=== PATIENT | female | born 1995 | race Caucasian/White ===

== ENCOUNTER 2019-02-01 13:11 | Emergency (ER) | payer BC ==
[~2019-02-01] VITALS: Ht 162.6 cm; Wt 63.5 kg
[2019-02-01] MEDS ORDERED: CONCERTA18 MG PO (13:22)
[2019-02-01] MEDS ORDERED: PRISTIQ ER50 MG PO (13:22)
[2019-02-01] MEDS ORDERED: BENADRYL25 MG ORAL (13:22)
[2019-02-01] MEDS ORDERED: DOXEPIN HCL25 MG ORAL (13:22)
[2019-02-01] MEDS ORDERED: LORazepam Inj 2mg/ml 1ml IM ONE (13:45)
--- NOTE | 2019-02-01 14:06 | NUR ---
ED Nurse Note:urine sent to labs
--- NOTE | 2019-02-01 14:24 | Emergency Room Report ---
History of Present Illness General Chief Complaint: Behavioral Complaint Source: Medical Record Present Illness HPI 23-year-old female with history of ADHD currently on amphetamine and anxiety brought in by boyfriend as she has been experiencing extreme anxiety for the past day. Patient is under the care of her psychiatrist Dr. Glez and reports that starting yesterday she started getting her dose of amphetamine and a half as it was recommended by primary care. Patient also has not taken clonazepam or anything for anxiety for years. Patient spoke to her psychiatrist prior to coming here and was told to come to the emergency room for anxiety control. Patient denies any SI, HI, changes of sleep and appetite. Denies visual and auditory hallucinations. Denies chest pain, short of breath, palpitation, drug use, tobacco smoke. Patient agrees to be treated with Ativan here however follow with primary care and psychiatrist tomorrow for further management Allergies: Coded Allergies: SULFAMETHOXAZOLE (Verified Allergy, Unknown, 02/01/19) TRIMETHOPRIM (Verified Allergy, Unknown, 02/01/19) Patient History Past Medical History: see triage record Past Surgical History: unable to obtain Pertinent Family History: none Last Menstrual Period: 01/25/19 Now: No Immunizations: UTD Reviewed Nursing Documentation: PMH: Agreed; PSxH: Agreed Nursing Documentation-PMH Past Medical History: No History, Except For Review of Systems All Other Systems: negative except mentioned in HPI Physical Exam Vital Signs Date Time Temp Pulse Resp B/P (MAP) Pulse Ox O2 Delivery O2 Flow Rate FiO2 02/01/19 13:16 98.4 105 18 120/81 (94) 99 Room Air Sp02 EP Interpretation: reviewed, normal General Appearance: no apparent distress, alert, GCS 15, non-toxic Head: normocephalic, atraumatic Eyes: bilateral eye normal inspection, bilateral eye PERRL ENT: hearing grossly normal, normal pharynx, no angioedema, normal voice Neck: full range of motion, supple/symm/no masses Respiratory: chest non-tender, lungs clear, normal breath sounds, no wheezing, speaking full sentences Cardiovascular #1: regular rate, rhythm, no edema, no murmur, normal capillary refill Cardiovascular #2: 2+ radial (R), 2+ radial (L) Gastrointestinal: normal bowel sounds, non tender, soft, non-distended, no guarding, no rebound Genitourinary: normal inspection, no CVA tenderness Musculoskeletal: back normal, gait/station normal, normal range of motion, non- tender, no calf tenderness Neurologic: alert, oriented x3, responsive, motor strength/tone normal, sensory intact, speech normal Psychiatric: judgement/insight normal, memory normal, no suicidal/homicidal ideation, no delusions, anxious Skin: no rash Lymphatic: normal inspection, no adenopathy Medical Decision Making PA Attestation All my diagnosis and treatment plans were reviewed ad discussed with my supervising physician Dr. Colbert Diagnostic Impression: Primary Impression: Anxiety attack Additional Impression: Tetrahydrocannabinol (THC) use disorder, mild, abuse ER Course 23-year-old female with history of ADHD currently on amphetamine and anxiety brought in by boyfriend as she has been experiencing extreme anxiety for the past day. Patient is under the care of her psychiatrist Dr. Glez and reports that starting yesterday she started getting her dose of amphetamine and a half as it was recommended by primary care. Patient also has not taken clonazepam or anything for anxiety for years. Patient spoke to her psychiatrist prior to coming here and was told to come to the emergency room for anxiety control. Patient denies any SI, HI, changes of sleep and appetite. Denies visual and auditory hallucinations. Denies chest pain, short of breath, palpitation, drug use, tobacco smoke. Patient agrees to be treated with Ativan here however follow with primary care and psychiatrist tomorrow for further management Ddx considered but are not limited to: generalized anxiety disorder, panic attack, depression with psycotic featurs, bipolar disorder, drug overdose Vital signs: are WNL, pt. is afebrile H&PE are most consistent with: Anxiety attack, THC use ORDERS: Urine test, tox screen, ED INTERVENTIONS: Ativan DISCHARGE: At this time pt. is stable for d/c to home. Will provide printed patient care instructions, and any necessary prescriptions. Care plan and follow up instructions have been discussed with the patient prior to discharge. Patient to follow-up with her primary care provider and psychiatrist also gave her a list of mental health hospitals to go to patient stable at time of discharge denies any suicidal or homicidal ideations. Last Vital Signs Date Time Temp Pulse Resp B/P (MAP) Pulse Ox O2 Delivery O2 Flow Rate FiO2 02/01/19 13:16 98.4 105 18 120/81 (94) 99 Room Air Disposition: HOME, SELF-CARE Condition: Stable Referrals: NON PHYSICIAN (PCP) Patient Instructions: Generalized Anxiety Disorder Additional Instructions: Follow-up with your psychiatrist regarding your ADHD management and anxiety. I will also give you a list of mental health clinics that he can voluntarily contact and go into. Mick Gay Feb 01, 2019 14:24
--- NOTE | 2019-02-01 15:00 | NUR ---
ED Nurse Note:pt. was given d/c instructions with psych referrals, VSS, pt. is A/Ox4, she wants to wait for her mother to arrive
[2019-02-01 15:26] VITALS: BP 120/81
--- NOTE | 2019-02-01 16:00 | NUR ---
ER DISCHARGE NOTE: Patient is cleared to be discharged per ERMD, pt is aox4, on room air, with stable vital signs. pt was given dc instructions, pt was able to verbalize understanding, pt is able to ambulate with steady gait. pt took all belongings.
[2019-02-01 16:20] VITALS: BP 120/81
== END 2019-02-01 16:00 | disposition home or self-care (01) ==
LOC: EMR 14:05
DX: F41.1 Generalized anxiety disorder (principal); F12.19 Cannabis abuse with unspecified cannabis-induced disorder; Z88.2 Allergy status to sulfonamides; Z88.1 Allergy status to other antibiotic agents; F90.9 Attention-deficit hyperactivity disorder, unspecified type; Z79.899 Other long term (current) drug therapy
CPT/HCPCS: 80307; 81025; 96372; 99283